=== PATIENT | male | born 1985 | race Caucasian/White ===

== ENCOUNTER 2020-09-11 05:11 | Inpatient (IN) | payer OTHER, SELFPAY ==
[2020-06-18 08:32] VITALS: BMI 43.0
--- NOTE | 2020-09-05 10:45 | EKG12_ITS ---
Test Reason : PRE SURGERY Blood Pressure : / mmHG Vent. Rate : 100 BPM Atrial Rate : 100 BPM P-R Int : 136 ms QRS Dur : 078 ms QT Int : 330 ms P-R-T Axes : 056 028 020 degrees QTc Int : 425 ms Normal sinus rhythm Normal ECG Confirmed by TRINI CALDERON, ADONAY ([id number]), editor continuity and script JOSÉ PALACIO ([id number]) on 09/10/2020 12:26:25 PM Referred By: Miguel Mercer Confirmed By:ADONAY FELIZ MD
[2020-09-05 11:45] LABS: Absolute Lymphocyte Count 2.34 X10^3/uL (0.83-4.51); Basophil# 0.05 X10^3/uL; Basophil% 0.8 % (0-1); Eosinophil# 0.21 X10^3/uL; Eosinophils% 3.2 % (0-5); Hematocrit 42.9 % (40-54); Hemoglobin 14.8 g/dL (13.0-16.5); Lymphocyte # 2.34 X10^3/ul (4.0); Lymphocyte % 35.8 % (19-41); Mean Corp Hgb Conc 34.5 g/dL (32-36); Mean Corpuscular Hgb 30.5 pg (27.0-32.0); Mean Corpuscular Volume 88.3 fL (80-94); Monocyte# 0.86 X10^3/uL; Monocyte% 13.2 % (0-10); NRBC Flagged by Analyzer 0 % (0-5); Neutrophil # 3.03 X10^3/uL (2.7-7.7); Neutrophil % 46.4 % (47-70); Platelet Count 151 K/mm3 (150-450); RBC Distribution Width CV 12.2 % (11.6-14.6); RBC Distribution Width SD 39.2 fl (35.1-43.9); Red Blood Count 4.86 M/mm3 (4.6-6.2); White Blood Count 6.5 K/mm3 (4.4-11.0)
[2020-09-05 12:14] LABS: Anion Gap 6 (5-15); BUN 13 mg/dL (7-18); BUN/Creat Ratio 14.5 RATIO (10-20); Calcium,Total 8.9 mg/dL (8.5-10.1); Chloride 106 mmol/L (98-107); EST Glomerular Filtration Rate 103 mL/min (>60); Est Glom Filt Rate - Afr Amer 124 mL/min (>60); Glucose 102 mg/dL (74-106); Magnesium 2.2 mg/dL (1.6-2.6); Sodium Level 138 mmol/L (136-145)
[2020-09-05 12:40] LABS: HIV - WCH Non-Reactive (Nonreactive)
[2020-09-06 05:07] LABS: HEPATITIS B SURFACE AG Negative (Negative); Hepatitis A AB, Total Negative (Negative); Hepatitis A IgM Antibody Negative (Negative); Hepatitis B Core AB IgM Negative (Negative); Hepatitis B Core Ab Total Negative (Negative)
[2020-09-06 10:47] LABS: Hep B Surface Antibodies Reactive (.)
[2020-09-06 10:48] LABS: Hepatitis C Ab >11.0 s/co ratio (0.0-0.9)
[2020-09-11] VITALS (15 sets, daily range): BP systolic 113–141; BP diastolic 63–92; PULSE 94–110; RESP 16–20; TEMP 36.4–37.4; O2SAT 94–99; BMI 48.4
--- NOTE | 2020-09-11 | DISC_PTH ---
PATIENT: CAMERON PROCTOR III LOC: MS3 U#:[id number] AGE/SX: 34/M ROOM: NC319 RE09/11/[address]: Dr. Elissa Blankenship MD : 1985 BED: 1 DIS: 09/14/2020 SPEC #: [id number] RECD: 09/11/20 14:45 STATUS: LUIS REVane #: [id number] NIKKY: 09/11/20 00:[address]: Miguel Mercer DEPT: SURGICAL PATHOLOGY RECD BY: Aditi Gong ENTERED: 09/12/20 08:45 SP TYPE: DISC OTHR DR: MD Dr. Vlad Tavarez, DO Dr. Miguel Mercer, DO No Primary Care Phys Tissues: Intervertebral disc, NOS Procedures: Surgery Specimen Level III Comments: @ Ordering doctor for SUIII edited from to @ by BETO at 09/12/20 1334 @ Submitting doctor edited from to @ by BETO at 09/12/20 1339 HEADER OPERATION: ERAS, 360 fusion L5-S1 PRE-OP DIAGNOSIS: Herniated nucleus pulposus, lumbar TISSUE SUBMITTED: Disc MICROSCOPIC DIAGNOSIS Disc L5-S1: Fragments of fibrocartilaginous tissue with degenerative changes. CELE:danielle 09/13/2020 MICROSCOPIC DESCRIPTION Slides are reviewed. GROSS DESCRIPTION Received in fixative is one container labeled with the patient's name and designated disc. The specimen consists of multiple irregular fragments of reno, indurated tissue that in aggregate measure 6 x 6 x 2.5 cm. The largest fragment measures 3 cm in greatest dimension. Wheel Press Operator tissue is submitted in two cassettes. / CELE:danielle 09/12/20 TC:5 CPT: 40672
--- NOTE | 2020-09-11 06:00 | HP_ITS ---
Intake Intake Visit Reasons: lumbar spine Accompanied by: Self Allergies No Known Allergies Allergy (Unverified 09/05/20 09:49) Medications losartan 50 mg-hydrochlorothiazide 12.5 mg tablet 1 tab PO DAILY 06/18/20 [History Confirmed 09/05/20] multivitamin with minerals 1 tab PO DAILY 06/18/20 [History Confirmed 09/05/20] PFSH Medical History (Updated 06/18/20 @ 08:39 by Jaky Bundy) H/O Clostridium difficile infection (Acute) HTN (hypertension) (Chronic) Surgical History (Updated 06/18/20 @ 08:39 by Jaky Bundy) History of repair of ACL (Acute) S/P MCL repair (Acute) Family History (Updated 06/18/20 @ 08:40 by Jaky Bundy) Grandfather Cancer Social History (Updated 09/05/20 @ 10:[address] Miguel Mercer, ) household members: friend(s) housing: house current occupational status: employed Smoking Status: Former smoker Tobacco: How many years used: 15 Smokeless tobacco user: chewing tobacco alcohol intake: current alcohol intake frequency: a few times a week Alcohol type: other what type of physical activity do you participate in: weight training do you feel safe at home: Yes HPI lumbar spine: Surgical H&P: Yes Details: Parts of this documentation were recorded by a scribe, this documentation accurately reflects the service provided and the decisions made by me, Dr. Miguel Mercer DO 09/05/20 0944. RASTA PROCTOR is a 34 year old M here today for his preop-op appointment and to sign surgery consent. DOS: 09/11/2020. Patient dropped off [facility] paperwork to be filled out for his employer. Patient was told to eat light meals two days prior to his surgery. Rasta returns for his preop. He is scheduled for surgery 6 days from now on Thursday. He is scheduled for a 360 degree fusion at L5-S1 without decompression. We discussed the surgery at length how it would be done what to expect etc. Spoke of possible risks and complications associated with the surgery including possibility of , paralysis infection meningitis damage to major blood vessels uncontrollable bleeding blood clot in the legs blood clot in the lungs microinfarction stroke among others. He understood the possible risks and complications associated with the surgery. His low back is been about the same activity makes it much worse he has much more low back pain than he does any problem with his legs all he gets in his legs is a off-and-on type numbness occasionally when his back gets worse. Has been living with it a long time and he states that it is no better than it was and he is tired of living like he has been living. He is looking forward to his surgery. We also spot spoke of postop care. He understands that he will get an ileus as they almost all do and that he will only be able to drink clear liquids until it is resolved. He has no problem with that. 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 Which he wants to do if possible. Perhaps 6 weeks at the worst. His company is very accommodating and he will not have to do any lifting whatsoever only office work up in his office. I answered all his questions and he signed the operative permit. He will have his lab done later today at the hospital. I will see him again at surgery on Thursday. Assessment & Plan Problems 1. HNP (herniated nucleus pulposus), lumbar M51.26 Coding Level of Care Code Off vis,est,level 2 Diagnoses HNP (herniated nucleus pulposus), lumbar M51.26 Time Spent (min) 20
[2020-09-11] MEDS: Acetaminophen 500 MG Tablet 1000 MG PO (06:20)
[2020-09-11 06:41] LABS: Bedside Glucose 83 mg/dL (70-110)
[2020-09-11] MEDS: Cefazolin 2 GM in 0.9% Normal Saline 100 ML IV (07:45)
[2020-09-11] MEDS: Thrombin 5,000 IU Kit (PSA) 5,000 IU Vial 5000 IU (08:00)
[2020-09-11] MEDS: Heparin Injection (Vial) 5,000 UNIT/ML VIAL 5000 UNIT (08:00)
[2020-09-11] MEDS: Heparin 10,000 UNITS/10 ML Vial 10000 UNITS (08:00)
--- NOTE | 2020-09-11 09:55 | RAD_ITS ---
STUDY: X-RAY - LUMBAR SPINE REASON FOR EXAM: Male, 34 years old. 360 FUSION L5-S1 TECHNIQUE: 1 view(s) of the lumbar spine were obtained. COMPARISON: None FINDINGS: The localization instrument is seen along the anterior aspect of the L5-S1 disc space. RAD/Spine 1 View Any Level IMPRESSION: The localization instrument is seen along the anterior aspect of the L5-S1 disc space. Electronically Signed: Yvan León MD at 11:04 EST , Service support ,
--- NOTE | 2020-09-11 10:07 | RAD_ITS ---
STUDY: X-RAY - LUMBAR SPINE REASON FOR EXAM: Male, 34 years old. 360 FUSION TECHNIQUE: 1 view(s) of the lumbar spine were obtained. COMPARISON: Comparison is made with prior study done earlier today. FINDINGS: Anterior fusion at the L5-S1 level with the disc spacer placement. RAD/Spine 1 View Any Level IMPRESSION: Anterior fusion at the L5-S1 level with disc spacer placement. Electronically Signed: Yvan León MD at 13:00 EST , Service support ,
--- NOTE | 2020-09-11 11:21 | OP.PCM_ITS ---
Problem List (1) DDD (degenerative disc disease) Status: Acute Report of Operation Date of Procedure: 09/11/20 Pre-Operative Diagnosis: Degenerative disc disease with herniated disc Post-Operative Diagnosis: The same Surgery/Procedure Performed:: 1. Anterior exposure for ALIF L5-S1. With cage placement and plate placement with 2 screws into the L5 and 2 into the sacrum Type of Anesthesia:: General Description of Procedure: Patient brought to the operating room. Underwent appropriate timeout consent. Given appropriate antibiotics. Was prepped and draped in a sterile fashion. He underwent general anesthesia. Appropriate monitoring lines were placed. Did incision in the left lower quadrant. We dissected down and got onto the anterior fascia. We then divided the fascia a little bit past midline to the right and past the rectus into the obliques. Divided a little bit of the obliques. We then freed up the inferior and superior anterior rectus. We then got lateral to the rectus and into the retroperitoneal plane. We put in the Omni retractor. We got on the psoas and then dissected medially to the vessels. With retractor in place were able to get down toward the L5-S1 disc space. We divided the middle sacral vessels between clips and this allowed the pain to retract up. There are a lot of medial branches of the left vein that were d ivided between multiple clips and allowed some lateral retraction of the vein. We then had adequate exposure of the L5-S1 space. We marked it with a needle and confirmed the x-ray that we are in the L5-S1 disc space. Patient then underwent a discectomy. We used trials to then dilate up. And settled with a 16mm cage. Some bone marrow was taken from the left ilium. We then placed the cage in with good position. And freed up superior and inferior to the disc. And the cage was placed in good position. 2 screws placed into the L5 and 2 screws placed into the sacrum. Put a film over the cage to be below the vessels. We put some Gregorio into the pelvis for some of this slight venous bleeding. There was good hemostasis. We released all retractors. We did a completion x-ray showed good position. We then closed the anterior fascia with a running strata fix. Then 201 3-0 Vicryl in layers. Monocryl and Dermabond for the skin. Patient will then be flipped over and the posterior be all done separately
--- NOTE | 2020-09-11 11:29 | PCM.OPRPT ---
Report of Operation Date of Procedure: 09/11/20 Description of Surgical Findings:: Preoperative diagnosis: Disc disruption syndrome L5-S1 with intractable low back pain Postoperative diagnoses: The same Procedure: #1 anterior lumbar interbody fusion L5-S1 #2 insertion of titanium cage L5-S1 #3 internal fixation with anterior spine plate L5-S1 #4 bone marrow aspirate from left iliac crest Cosurgeons: Dr. Mercer and Dr. Banda Anesthesia: General endotracheal anesthesia administered by [facility] Estimated blood loss: 200 cc Drains: None Complications: None Procedure: Patient was taken to the OR where he was placed in the supine position on the operating table he was then placed under general endotracheal anesthesia neuro monitoring then inserted all their leads and the patient and a Delcid catheter was inserted. The abdomen was then prepped and draped in standard fashion. The the approach to the L5-S1 disc space is described in Dr. Banda's operative summary. Dr. Banda had the L5-S1 disc exposed and documented with an x-ray I then remove the anterior annulus with a 10 blade. I removed pituitary rongeurs to remove the large anterior annulus and more disc from within the disc space. We then used both curettes ring type and bowl type to start removing all the ending nucleus and annulus out of the disc space. Using the curettes I also remove the cartilage off both endplates both the endplate of S1 and the endplate of L5. This point was done we took her measurements for a cage. We decided to use a 4 of the 2 size cages but we had to use a 16mm high cage with an 8 degree doses. Used a broach to broach the space and get good bleeding bone off the endplates thorough irrigation was carried out every 10 or 15 minutes in the course of the case. At that before this point I used a Jamshidi needle to the left ASIS. Then obtained 60 cc of BMA from the crest and handed this off to the tissue recovery technician in the room to spin it down and separate stem cells from the plasma red cells white cells etc. Obtained these were concentrated 8-10 times and handed back to us on the surgery table. Then used spongy DBM that had been soaked for softening and soaked the DBM in the patient's own stem cells. I then squeezed him out rolled him and put him into both halves of the cage. This filled the rest of the cage I then soaked it more in the patient's stem cells so that it would can be completely soaked in the patient's cells. We had 1 of last irrigation of the space that was now well-prepped and the cage was put in place and tamped into place with a 2 to 3 mm. Then used a 27 mm anterior spine plate note that I elevated the longitudinal ligament and periosteum off of the lips above and below we used a 30 mm screws at all 4 points with the cage being held in place I Dr. Banda then tamped each of the holes 1 at a time and entered with a 30 mm self-tapping screws. This was done at 2 into L5 and 2 into S1. We then activated the locking mechanisms. An amniotic graft was placed over the plate to prevent any adhesions to the left iliac vessels. This was then seen on the x-ray and the lateral position was found to be very satisfactory with good position of the plate the screws and the cage. The closure is then described in Dr. Banda's operative summary.
--- NOTE | 2020-09-11 12:40 | RAD_ITS ---
STUDY: X-RAY - LUMBAR SPINE REASON FOR EXAM: Male, 34 years old. 360 FUSION, L5-S1 IMAGE #3 TECHNIQUE: 1 view(s) of the lumbar spine were obtained. COMPARISON: None FINDINGS: The localization instrument is seen along the posterior aspect of the L5-S1 disc. RAD/Spine 1 View Any Level IMPRESSION: The localization instrument is seen along the posterior aspect of the L5-S1 disc. Electronically Signed: Yvan León MD at 13:28 EST , Service support ,
--- NOTE | 2020-09-11 13:40 | RAD_ITS ---
STUDY: X-RAY - LUMBAR SPINE REASON FOR EXAM: Male, 34 years old. 360 fusion -- image #4 TECHNIQUE: 1 view(s) of the lumbar spine were obtained. COMPARISON: 09/11/2020 at 1236 FINDINGS: Single lateral view the lumbar spine obtained in the operating room demonstrates the patient be status post interval placement of a posterior fixation device at L5/S1.. RAD/Spine 1 View Any Level IMPRESSION: Radiograph during spinal fusion. Electronically Signed: Jaime Parker MD at 14:02 EST Tel , Service support ,
--- NOTE | 2020-09-11 14:26 | OP.PCM_ITS ---
Report of Operation Date of Procedure: 09/11/20 Description of Surgical Findings:: Preoperative diagnosis: Disc disruption syndrome L5-S1 Postoperative diagnosis: The same Procedure: Steroid fusion L5-S1 #2 internal segmental fixation L5-S1 #3 application of spacer L5-S1 Surgeon: Dr. Mercer assistant men's lacrosse coach:Jeferson WALLACE Anesthesia: General endotracheal anesthesia administered by [facility] Estimated blood loss: Less than 50 cc Drains: None Complications: None Procedure: After the anterior surgery was performed and the abdomen closed we then placed the patient onto the prone position on the Kyle special frame. Once properly positioned with care to protect his bony prominences his genitalia is brachial plexus is ulnar nerves of both elbows and the facial features the back was prepped and draped in standard fashion. I then made a longitudinal incision centered over L5-S1. Subcutaneous tissues were incised length of the skin incision. I then opened the lumbar fascia first to the left of the spinous processes and elevated paravertebral muscles off the lamina of S1 and the lamina of L5. An intraoperative x-ray was taken to ensure that we were indeed at the proper level which we were. We then opened the right side elevating peritoneal muscles off the lamina of 5 the lamina of S1 and in between. I then removed the interspinous ligament between L5 and S1. The bony spacer and bone graft were measured for using trials I then used the bur to bur the lamina of of L5 and the lamina of S1 bilaterally. Noted we used the super slide self-retaining retractor. Once this was done we then put the plate the spacer in place to slightly distract the 2 vertebra. Demineralized bone sponges were then placed from L4-S1 lamina on both sides note that it was soaked in the patient's own stem cells that we obtained from the front. The internal fixation device was then applied and put in a little bit of compression and all the locking mechanisms were then activated. Observed on lateral x-ray was found to be satisfactory. Closure was then begun we closed the lumbar fascia using fig [id number] suture with #1 Vicryl for closure of subcutaneous tissues with 2-0 Vicryl and 0 Vicryl in interrupted fashion and in layers. And the skin was approximated using skin clips. Sterile dressings were then applied. He was then recovered in the OR he was moved to his hospital bed and taken to recovery in satisfactory condition. The end of operative summary on Rasta Arias.
[2020-09-11] MEDS: Cefazolin 1 GM/50 ML BAG IV ×2 (17:28→23:50)
[2020-09-11] MEDS: Morphine 4 MG/ML Syringe IV ×4 (17:29→23:51)
--- NOTE | 2020-09-11 17:35 | PCM.PN.HOSP ---
Patient Problems: Active and Suspected Problems (Last Updated 06/18/20 @ 08:39 by Jaky Bundy) DDD (degenerative disc disease) (Acute) Subjective: Having significant pain in abd and back currently. Vitals/I&O's: Vital Signs Temp Pulse Resp BP Pulse Ox 37.4 C H 97 20 H 132/77 H 94 09/11/20 17:08 09/11/20 17:08 09/11/20 17:08 09/11/20 17:08 09/11/20 17:08 Oxygen Flow Rate (L/min) 2 Oxygen Delivery Method Nasal Cannula Weight: 153 kg Body Mass Index (BMI) 48.4 Intake and Output for Last 24 Hours 09/09/20 09/10/20 09/11/20 23:59 23:59 23:59 Output Total 1150 / 1150 Balance -1150 / -1150 General: Alert, - - uncomfortable. afebrile. HEENT: Atraumatic, Normocephalic Oral: Moist Mucosa, No Gingival or Mucosal Lesions/ Ulcerations Neck: No Nodes, Thyroid Normal Size and Texture Lungs: Clear to auscultation, Normal air movement, No rhonchi, No wheeze, No rales Cardiovascular: Regular rate, Regular Rhythm, Normal S1, Normal S2, No murmurs Abdomen: Bowel Sounds Present, Soft, Non Tender, Distended - slight Extremities: Peripheral Pulses Normal, - - SCDs in place Neurological: - - moves all extemities spontaneously Psych/Mental Status: Appropriate Microbiology Past 72 Hours 09/10/20 09:55 Interface Orders SARS-CoV-2 Antigen (Rapid) - Final Laboratory Results 09/11/20 05:54: POC Glucose 83 Current Medications Diazepam (Diazepam 5 Mg Tablet) 10 mg PO Q6H PRN PRN PRN Reason: Muscle Spasms Enteral Nutritional Formula (Ensure Surgery 237 Ml Liquid) 237 ml PO TIDCM JUAN Famotidine (Famotidine 20 Mg Tablet) 20 mg PO BID JUAN Lactated Ringer's () 1,000 mls @ 100 mls/hr IV .Q10H JUAN Cefazolin Sodium () 1 gm in 50 mls @ 100 mls/hr IV Q8H JUAN Stop: 09/12/20 00:14 Last Admin: 09/11/20 17:28 Dose: 100 mls/hr Documented by: Insulin Human Lispro (Insulin Lispro 100 Unit/Ml Insuln.Pen) 1 - 6 unit SC Q4H PRN PRN; Protocol PRN Reason: BG>/= 180, SEE PROTOCOL Morphine Sulfate (Morphine 4 Mg/Ml Syringe) 2 - 4 mg IV Q2H PRN PRN PRN Reason: Pain Score 6-10 Last Admin: 09/11/20 17:29 Dose: 4 mg Documented by: Morphine Sulfate (Morphine 2 Mg/Ml Syringe) 2 - 4 mg IV Q2H PRN PRN PRN Reason: Pain Score 6-10 Ondansetron HCl (Ondansetron 4 Mg/2 Ml Vial) 4 mg IV Q8H PRN PRN PRN Reason: NAUSEA Senna/Docusate Sodium (Senna/Docusate Sodium 1 Tablet) 2 tablet PO BID JUAN Sodium Chloride (0.9% Saline Lock 10 Ml Syringe) 10 - 40 ml IV UD PRN PRN Reason: SALINE FLUSH Tramadol HCl (Tramadol 50 Mg Tablet) 50 - 100 mg PO Q6H PRN PRN PRN Reason: Pain Score 4-5 Zolpidem Tartrate (Zolpidem Tartrate 5 Mg Tablet) 5 mg PO QHS PRN PRN PRN Reason: INSOMNIA STROKE Vital Signs/Narrative: Vital Signs Temp Pulse Resp BP Pulse Ox 09/11/20 17:08 37.4 C H 97 20 H 132/77 H 94 09/11/20 17:06 96 09/11/20 16:17 36.5 C L 99 16 115/65 97 09/11/20 16:16 97 16 113/76 97 09/11/20 16:00 95 16 123/73 H 97 09/11/20 15:45 97 16 141/88 H 97 09/11/20 15:30 100 16 122/76 H 97 09/11/20 15:15 102 H 16 129/73 H 99 09/11/20 15:00 104 H 16 119/75 97 09/11/20 14:45 109 H 16 140/83 H 97 09/11/20 14:30 110 H 16 129/76 H 96 09/11/20 14:27 36.4 C L 105 H 16 129/73 H 95 Medical Necessity - Tobacco Use Smoking Status: Former smoker Tobacco Use: Chew Assessment/Plan All Active Problems (Last Updated 06/18/20 @ 08:39 by Jaky Bundy) DDD (degenerative disc disease) (Acute) 1. Fusion L5-S1 s/p anterior fusion and insertion of titanium cage and spacer placement mgmt per spine surgery pain control with morphine, consider oxycodone when able to take PO 2. Obesity Class III complicates care and overall recovery add IS outpt weight loss/bariatric programs recommended 3. VTE prophylaxis: SCDs Thank you for the consult. The hospitalist service will continue to follow along during hospitalization. Inpatient E&M: 73511 Subs Hosp L2
[2020-09-11] MEDS: traMADol 50 MG Tablet PO (18:58)
[2020-09-11] MEDS: diazePAM 5 MG Tablet 10 MG PO (18:58)
[2020-09-11] MEDS: Senna/Docusate Sodium 1 Tablet 2 TABLET PO (21:17)
[2020-09-11] MEDS: Famotidine 20 MG Tablet PO (21:17)
[2020-09-11] MEDS: Zolpidem Tartrate 5 MG Tablet PO (23:53)
[2020-09-12] VITALS (8 sets, daily range): BP systolic 112–145; BP diastolic 70–95; PULSE 87–108; RESP 16–20; TEMP 36.4–36.8; O2SAT 92–100
[2020-09-12] MEDS: traMADol 50 MG Tablet PO ×3 (03:17→23:56)
[2020-09-12] MEDS: diazePAM 5 MG Tablet 10 MG PO ×4 (03:17→23:57)
[2020-09-12] MEDS: Morphine 4 MG/ML Syringe IV (06:04)
--- NOTE | 2020-09-12 07:39 | PCM.PN.HOSP ---
Patient Problems: Active and Suspected Problems (Last Updated 06/18/20 @ 08:39 by Jaky Bundy) DDD (degenerative disc disease) (Acute) Reason for Visit: Follow-up on post-op management for back surgery Subjective: Patient was seen and examined. Complains of severe pain. Denies any tingling or numbness or fever or chills Objective: General: Alert, - - uncomfortable. afebrile. HEENT: Atraumatic, Normocephalic Oral: Moist Mucosa, No Gingival or Mucosal Lesions/ Ulcerations Neck: No Nodes, Thyroid Normal Size and Texture Lungs: Clear to auscultation, Normal air movement, No rhonchi, No wheeze, No rales Cardiovascular: Regular rate, Regular Rhythm, Normal S1, Normal S2, No murmurs Abdomen: Bowel Sounds sluggish, Soft, non-tender, Distended - slight Extremities: Peripheral Pulses Normal, - - SCDs in place Neurological: - - moves all extemities spontaneously Psych/Mental Status: Appropriate Vitals/I&O's: Vital Signs Temp Pulse Resp BP Pulse Ox 97.8 F 98 18 112/70 96 09/12/20 03:11 09/12/20 03:11 09/12/20 03:11 09/12/20 03:11 09/12/20 03:11 Oxygen Flow Rate (L/min) 2 Oxygen Delivery Method Nasal Cannula Weight: 153 kg Body Mass Index (BMI) 48.4 Intake and Output for Last 24 Hours 09/10/20 09/11/20 09/12/20 23:59 23:59 23:59 Intake Total 1800 / 1800 860 / 860 Output Total 4650 / 4650 2500 / 2500 Balance -2850 / -2850 -1640 / -1640 Microbiology Past 72 Hours 09/10/20 09:55 Interface Orders SARS-CoV-2 Antigen (Rapid) - Final Current Medications Diazepam (Diazepam 5 Mg Tablet) 10 mg PO Q6H PRN PRN PRN Reason: Muscle Spasms Last Admin: 09/12/20 03:17 Dose: 10 mg Documented by: Enteral Nutritional Formula (Ensure Surgery 237 Ml Liquid) 237 ml PO TIDCM [facility] Last Admin: 09/11/20 18:45 Dose: Not Given Documented by: Famotidine (Famotidine 20 Mg Tablet) 20 mg PO BID [facility] Last Admin: 09/11/20 21:17 Dose: 20 mg Documented by: Insulin Human Lispro (Insulin Lispro 100 Unit/Ml Insuln.Pen) 1 - 6 unit SC Q4H PRN PRN; Protocol PRN Reason: BG>/= 180, SEE PROTOCOL Morphine Sulfate (Morphine 4 Mg/Ml Syringe) 2 - 4 mg IV Q2H PRN PRN PRN Reason: Pain Score 6-10 Last Admin: 09/12/20 06:04 Dose: 4 mg Documented by: Morphine Sulfate (Morphine 2 Mg/Ml Syringe) 2 - 4 mg IV Q2H PRN PRN PRN Reason: Pain Score 6-10 Ondansetron HCl (Ondansetron 4 Mg/2 Ml Vial) 4 mg IV Q8H PRN PRN PRN Reason: NAUSEA Senna/Docusate Sodium (Senna/Docusate Sodium 1 Tablet) 2 tablet PO BID JUAN Last Admin: 09/11/20 21:17 Dose: 2 tablet Documented by: Sodium Chloride (0.9% Saline Lock 10 Ml Syringe) 10 - 40 ml IV UD PRN PRN Reason: SALINE FLUSH Tramadol HCl (Tramadol 50 Mg Tablet) 50 - 100 mg PO Q6H PRN PRN PRN Reason: Pain Score 4-5 Last Admin: 09/12/20 03:17 Dose: 100 mg Documented by: Zolpidem Tartrate (Zolpidem Tartrate 5 Mg Tablet) 5 mg PO QHS PRN PRN PRN Reason: INSOMNIA Last Admin: 09/11/20 23:53 Dose: 5 mg Documented by: Medical Necessity - Tobacco Use Smoking Status: Former smoker Tobacco Use: Chew Assessment/Plan All Active Problems (Last Updated 06/18/20 @ 08:39 by Jaky Bundy) DDD (degenerative disc disease) (Acute) 1. POD#1 s/p fusion L5-S1, cage placement and plate placement, pain is fairly uncontrolled Continue on tramadol prn, Tylenol 1000mg TID PT/OT to evaluate and treat 2. Morbid obesity, BMI 48.4, lifestyle modifications recommendations 3. DVT PPx- SCDs Inpatient E&M: 90182 Subs Hosp L2
[2020-09-12] MEDS: Morphine 2 MG/ML Syringe IV ×5 (08:14→20:57)
[2020-09-12] MEDS: 0.9% Saline Lock 10 ML Syringe IV ×3 (08:14→20:57)
[2020-09-12] MEDS: Ensure Surgery 237 ML LIQUID PO ×3 (08:18→18:07)
[2020-09-12] MEDS: Senna/Docusate Sodium 1 Tablet 2 TABLET PO ×2 (08:18→21:01)
[2020-09-12] MEDS: Famotidine 20 MG Tablet PO ×2 (08:18→21:01)
--- NOTE | 2020-09-12 10:35 | CASEMGMT ---
RN CM Face to Face with patient for initial transition planning/care coordination assessment. RN CM introduced self and role at [facility]. Patient sitting in chair, alert and oriented. Patient willing to participate in assessment and is able to answer all questions appropriately. Care providers, pharmacy, and demographics verified. Patient wishes to discharge home, denies need for home health at this time. Patient states he has no further needs or concerns at this time. CM to follow for discharge planning needs that may arise. PCP: No PCP, patient declined list and knows who he will setup with Specialists: Ruslan spinal surgeon Preferred Pharmacy: [facility] Insurance: [email or web address] Prescription Benefit: yes Living Will/HPOA: none LNOK: parents Living Arrangements: Patient lives with a roommate in a first floor apartment with no steps to enter. Patient states that he is independent at home. Transportation: father DME/HHC: Patient denies DME or previous HHC. Will monitor for need for walker at discharge. Disposition Plan: Patient to discharge home with family support and follow-up plans in place. Ronel PALOMO, RN, CM
--- NOTE | 2020-09-12 13:58 | PCM.PN.BLA ---
Progress Note Postop day #1: His main complaint is that of some pain in his abdomen and pain in his low back. Other than that he has actually been up on his walker today. The low back pain that he has now is a different kind of pain that he had prior to surgery. He is intact in both lower extremities. His dressings are dry. Has had some flatulence already. However we will still assume that he has an ileus and will keep him on clear liquids only. STROKE Vital Signs/Narrative: Vital Signs Temp Pulse Resp BP Pulse Ox 09/12/20 10:23 98.0 F 108 H 18 145/95 H 92
[2020-09-12] MEDS: Acetaminophen 500 MG Tablet 1000 MG PO ×2 (14:59→21:01)
[2020-09-13 04:40] VITALS: BP 135/77; PULSE 97; RESP 20; TEMP 37.3; O2SAT 99
[2020-09-13] MEDS: Morphine 2 MG/ML Syringe IV (04:42)
[2020-09-13] MEDS: 0.9% Saline Lock 10 ML Syringe IV ×3 (04:46→18:05)
[2020-09-13] MEDS: Acetaminophen 500 MG Tablet 1000 MG PO ×3 (06:04→22:24)
[2020-09-13] MEDS: traMADol 50 MG Tablet PO ×3 (07:45→20:03)
[2020-09-13] MEDS: Ensure Surgery 237 ML LIQUID PO ×3 (08:21→18:18)
[2020-09-13] MEDS: diazePAM 5 MG Tablet 10 MG PO ×2 (08:34→18:04)
[2020-09-13 09:11] VITALS: O2SAT 99
[2020-09-13] MEDS: Morphine 4 MG/ML Syringe IV ×3 (09:42→22:21)
[2020-09-13 09:50] VITALS: BP 147/74; PULSE 88; RESP 18; TEMP 36.9; O2SAT 99
[2020-09-13] MEDS: Senna/Docusate Sodium 1 Tablet 2 TABLET PO ×2 (10:06→22:23)
[2020-09-13] MEDS: Famotidine 20 MG Tablet PO ×2 (10:07→22:24)
--- NOTE | 2020-09-13 11:51 | PN_ITS ---
Progress Note Postop day #2: The patient is doing better today than yesterday. He can get up a lot easier but he does still need to use his walker. Neurologically he is intact. The posterior dressing was dry and I reinforced it nonetheless. To take it off on Thursday and to shower on Thursday. Todd is still soft and he is having some flatulence. We explained to him that he still not ready for food. We will continue on clear liquids for now. In my absence Jeferson Cramer my physician assistant professor of business will see the patient tomorrow and probably discharge him. Gross is quite satisfactory. STROKE Vital Signs/Narrative: Vital Signs Temp Pulse Resp BP Pulse Ox 09/13/20 09:50 98.5 F 88 18 147/74 H 99 09/13/20 09:11 99
--- NOTE | 2020-09-13 12:19 | CASEMGMT ---
Addendum entered by Tristan Rome 09/13/20 13:28: Script for heavy duty FWW faxed to [employer]. Call placed to Erum @ [employer]. She was made aware anticipate pt will discharge Fri or Sat. She states they will deliver walker to pt's room tomorrow. Original Note: FREDDY MCNALLY NOTE; Anticipate pt will be ready to discharge Fri or Sat. This RN CM to room to discuss discharge planning. Pt states he will need a walker at discharge. Pt provided with list of local DME companies. He states he has no preference. Pt made aware [facility] is affiliated /[facility] and states is agreeable to [employer]. Script obtained from Dr Mercer for FWW. Will fax to [employer] and have walker delivered to pt's room prior to discharge. Per Dr Mercer, he does not want pt to have any therapy @ discharge. Pt made aware. Pt to f/u with Dr Mercer @ his office after discharge. Robyn PALOMO RN CM
[2020-09-13 16:00] VITALS: BP 115/60; PULSE 100; RESP 18; TEMP 36.5; O2SAT 99
--- NOTE | 2020-09-13 16:37 | PN_ITS ---
Patient Problems: Active and Suspected Problems (Last Updated 06/18/20 @ 08:39 by Jaky Bundy) DDD (degenerative disc disease) (Acute) Reason for Visit: Follow-up on post-op management for back surgery Subjective: Patient was seen and examined. Pain is better. Denies any tingling or numbness or fever or chills Objective: Physical exam: General: Alert, more comfortable, super morbid obesity, not pale, not jaundiced, well hydrated HEENT: Atraumatic, Normocephalic Oral: Moist Mucosa Neck: No Nodes, Thyroid Normal Size and Texture Lungs: Clear to auscultation, Normal air movement, No rhonchi, No wheeze, No rales Cardiovascular: Regular rate, Regular Rhythm, Normal S1, Normal S2, No murmurs Abdomen: Bowel Sounds sluggish, soft, non-tender, distended - slight Extremities: Peripheral Pulses Normal, - - SCDs in place Neurological: - - moves all extremities spontaneously Psych/Mental Status: Appropriate Vitals/I&O's: Vital Signs Temp Pulse Resp BP Pulse Ox 97.7 F L 100 18 115/60 99 09/13/20 16:00 09/13/20 16:00 09/13/20 16:00 09/13/20 16:00 09/13/20 16:00 Oxygen Flow Rate (L/min) 2 Oxygen Delivery Method Room Air Weight: 153 kg Body Mass Index (BMI) 48.4 Intake and Output for Last 24 Hours 09/11/20 09/12/20 09/13/20 23:59 23:59 23:59 Intake Total 1800 / 1800 2525 / 3425 1700 / 1700 Output Total 4650 / 4650 3300 / 3300 650 / 650 Balance -2850 / -2850 -775 / 125 1050 / 1050 Current Medications Acetaminophen (Acetaminophen 500 Mg Tablet) 1,000 mg PO Q8 [facility] Last Admin: 09/13/20 13:59 Dose: 1,000 mg Documented by: Diazepam (Diazepam 5 Mg Tablet) 10 mg PO Q6H PRN PRN PRN Reason: Muscle Spasms Last Admin: 09/13/20 08:34 Dose: 10 mg Documented by: Enteral Nutritional Formula (Ensure Surgery 237 Ml Liquid) 237 ml PO TIDCM [facility] Last Admin: 09/13/20 13:58 Dose: 237 ml Documented by: Famotidine (Famotidine 20 Mg Tablet) 20 mg PO BID [facility] Last Admin: 09/13/20 10:07 Dose: 20 mg Documented by: Insulin Human Lispro (Insulin Lispro 100 Unit/Ml Insuln.Pen) 1 - 6 unit SC Q4H PRN PRN; Protocol PRN Reason: BG>/= 180, SEE PROTOCOL Morphine Sulfate (Morphine 4 Mg/Ml Syringe) 2 - 4 mg IV Q2H PRN PRN PRN Reason: Pain Score 6-10 Last Admin: 09/13/20 09:42 Dose: 4 mg Documented by: Morphine Sulfate (Morphine 2 Mg/Ml Syringe) 2 - 4 mg IV Q2H PRN PRN PRN Reason: Pain Score 6-10 Last Admin: 09/13/20 04:42 Dose: 2 mg Documented by: Ondansetron HCl (Ondansetron 4 Mg/2 Ml Vial) 4 mg IV Q8H PRN PRN PRN Reason: NAUSEA Senna/Docusate Sodium (Senna/Docusate Sodium 1 Tablet) 2 tablet PO BID [facility] Last Admin: 09/13/20 10:06 Dose: 2 tablet Documented by: Sodium Chloride (0.9% Saline Lock 10 Ml Syringe) 10 - 40 ml IV UD PRN PRN Reason: SALINE FLUSH Last Admin: 09/13/20 09:42 Dose: 10 ml Documented by: Tramadol HCl (Tramadol 50 Mg Tablet) 50 - 100 mg PO Q6H PRN PRN PRN Reason: Pain Score 4-5 Last Admin: 09/13/20 13:58 Dose: 100 mg Documented by: Zolpidem Tartrate (Zolpidem Tartrate 5 Mg Tablet) 5 mg PO QHS PRN PRN PRN Reason: INSOMNIA Last Admin: 09/11/20 23:53 Dose: 5 mg Documented by: STROKE Vital Signs/Narrative: Vital Signs Temp Pulse Resp BP Pulse Ox 09/13/20 16:00 97.7 F L 100 18 115/60 99 Medical Necessity - Tobacco Use Smoking Status: Former smoker Tobacco Use: Chew Assessment/Plan All Active Problems (Last Updated 06/18/20 @ 08:39 by Jaky Bundy) DDD (degenerative disc disease) (Acute) 1. POD#2 s/p fusion L5-S1, cage placement and plate placement, pain is better uncontrolled today Continue on tramadol prn, Tylenol 1000mg TID PT/OT to continue to evaluate and treat 2. Morbid obesity, BMI 48.4, lifestyle modifications recommendations 3. DVT PPx- SCDs Inpatient E&M: 60357 Subs Hosp L2
[2020-09-13 22:00] VITALS: BP 150/78; PULSE 107; RESP 18; TEMP 37.2; O2SAT 97
[2020-09-14] MEDS: Morphine 4 MG/ML Syringe IV ×2 (01:10→07:21)
[2020-09-14] MEDS: diazePAM 5 MG Tablet 10 MG PO ×2 (01:13→09:35)
[2020-09-14 03:21] VITALS: BP 119/66; PULSE 106; RESP 18; TEMP 37.2; O2SAT 94
[2020-09-14] MEDS: Acetaminophen 500 MG Tablet 1000 MG PO (05:39)
[2020-09-14] MEDS: traMADol 50 MG Tablet PO ×2 (05:39→11:43)
[2020-09-14 07:29] VITALS: O2SAT 94
[2020-09-14 07:37] VITALS: BP 147/57; PULSE 102; RESP 19; TEMP 37.3; O2SAT 97
[2020-09-14 08:04] VITALS: PULSE 102; O2SAT 97
[2020-09-14] MEDS: Famotidine 20 MG Tablet PO (08:47)
[2020-09-14] MEDS: Senna/Docusate Sodium 1 Tablet 2 TABLET PO (08:47)
[2020-09-14] MEDS: Ensure Surgery 237 ML LIQUID PO ×2 (08:48→13:25)
[2020-09-14] MEDS: Morphine 2 MG/ML Syringe IV (09:37)
--- NOTE | 2020-09-14 09:44 | PCM.PN.HOSP ---
Patient Problems: Active and Suspected Problems (Last Updated 06/18/20 @ 08:39 by Jaky Bundy) DDD (degenerative disc disease) (Acute) Reason for Visit: Follow-up on post-op management for 360 degree back surgery Subjective: Patient was seen and examined. No new complains. Denies any fever or chills. Objective: Physical exam: General: Alert, more comfortable, super morbid obesity, not pale, not jaundiced, well hydrated HEENT: Atraumatic, Normocephalic Oral: Moist Mucosa Neck: No Nodes, Thyroid Normal Size and Texture Lungs: Clear to auscultation, Normal air movement, No rhonchi, No wheeze, No rales Cardiovascular: Regular rate, Regular Rhythm, Normal S1, Normal S2, No murmurs Abdomen: Bowel Sounds sluggish, soft, non-tender, distended - slight Extremities: Peripheral Pulses Normal, - - SCDs in place Neurological: - - moves all extremities spontaneously Psych/Mental Status: Appropriate Vitals/I&O's: Vital Signs Temp Pulse Resp BP Pulse Ox 99.1 F 102 H 19 H 147/57 H 97 09/14/20 07:37 09/14/20 08:04 09/14/20 07:37 09/14/20 07:37 09/14/20 08:04 Oxygen Flow Rate (L/min) 2 Oxygen Delivery Method Room Air Weight: 153 kg Body Mass Index (BMI) 48.4 Intake and Output for Last 24 Hours 09/12/20 09/13/20 09/14/20 23:59 23:59 23:59 Intake Total 2525 / 3425 1700 / 2000 900 / 900 Output Total 3300 / 3300 650 / 650 Balance -775 / 125 1050 / 1350 900 / 900 Current Medications Acetaminophen (Acetaminophen 500 Mg Tablet) 1,000 mg PO Q8 [facility] Last Admin: 09/14/20 05:39 Dose: 1,000 mg Documented by: Diazepam (Diazepam 5 Mg Tablet) 10 mg PO Q6H PRN PRN PRN Reason: Muscle Spasms Last Admin: 09/14/20 09:35 Dose: 10 mg Documented by: Enteral Nutritional Formula (Ensure Surgery 237 Ml Liquid) 237 ml PO TIDCM [facility] Last Admin: 09/14/20 08:48 Dose: 237 ml Documented by: Famotidine (Famotidine 20 Mg Tablet) 20 mg PO BID [facility] Last Admin: 09/14/20 08:47 Dose: 20 mg Documented by: Insulin Human Lispro (Insulin Lispro 100 Unit/Ml Insuln.Pen) 1 - 6 unit SC Q4H PRN PRN; Protocol PRN Reason: BG>/= 180, SEE PROTOCOL Morphine Sulfate (Morphine 4 Mg/Ml Syringe) 2 - 4 mg IV Q2H PRN PRN PRN Reason: Pain Score 6-10 Last Admin: 09/14/20 07:21 Dose: 4 mg Documented by: Morphine Sulfate (Morphine 2 Mg/Ml Syringe) 2 - 4 mg IV Q2H PRN PRN PRN Reason: Pain Score 6-10 Last Admin: 09/14/20 09:37 Dose: 4 mg Documented by: Ondansetron HCl (Ondansetron 4 Mg/2 Ml Vial) 4 mg IV Q8H PRN PRN PRN Reason: NAUSEA Senna/Docusate Sodium (Senna/Docusate Sodium 1 Tablet) 2 tablet PO BID [facility] Last Admin: 09/14/20 08:47 Dose: 2 tablet Documented by: Sodium Chloride (0.9% Saline Lock 10 Ml Syringe) 10 - 40 ml IV UD PRN PRN Reason: SALINE FLUSH Last Admin: 09/13/20 18:05 Dose: 10 ml Documented by: Tramadol HCl (Tramadol 50 Mg Tablet) 50 - 100 mg PO Q6H PRN PRN PRN Reason: Pain Score 4-5 Last Admin: 09/14/20 05:39 Dose: 100 mg Documented by: Zolpidem Tartrate (Zolpidem Tartrate 5 Mg Tablet) 5 mg PO QHS PRN PRN PRN Reason: INSOMNIA Last Admin: 09/11/20 23:53 Dose: 5 mg Documented by: STROKE Vital Signs/Narrative: Vital Signs Temp Pulse Resp BP Pulse Ox 09/14/20 08:04 102 H 97 09/14/20 07:37 99.1 F 102 H 19 H 147/57 H 97 09/14/20 07:29 94 Medical Necessity - Tobacco Use Smoking Status: Former smoker Tobacco Use: Chew Assessment/Plan All Active Problems (Last Updated 06/18/20 @ 08:39 by Jaky Bundy) DDD (degenerative disc disease) (Acute) 1. POD#3 s/p fusion L5-S1, cage placement and plate placement, pain is controlled today Continue on tramadol prn, Tylenol 1000mg TID PT/OT to continue to evaluate and treat 2. Morbid obesity, BMI 48.4, lifestyle modifications recommendations 3. Chronic Hep C, needs to follow-up in the outpatient 4.,DVT PPx- SCDs Inpatient E&M: 80834 Subs Hosp L2
--- NOTE | 2020-09-14 12:23 | CASEMGMT ---
RN CM in to room to verify that walker was delivered from [facility]. Patient states walker was delivered and is at bedside. Patient had no further needs or concerns at this time.
[2020-09-14] MEDS: HYDROcodone Bitartrate/Apap 5/325 Tablet PO (13:20)
[2020-09-14 13:26] VITALS: BP 124/69; PULSE 95; RESP 18; TEMP 36.9; O2SAT 96
--- NOTE | 2020-09-14 15:21 | PCM.DC.SUM ---
Discharge Date and Diagnosis - Problem List Patient Problems: Active and Suspected Problems (Last Updated 06/18/20 @ 08:39 by Jaky Bundy) DDD (degenerative disc disease) (Acute) Date of Admission: 09/11/20 Date of Discharge: 09/14/20 - - Primary Discharge Diagnosis Acute Problems: Active Problems (Last Updated 06/18/20 @ 08:39 by Jaky Bundy) DDD (degenerative disc disease) (Acute) Hospital Course and Treatment No consults required Operations: - - Anterior lumbar interbody fusion of L5-S1 with insertion of titanium cage and internal fixation with anterior spin plate of L5-S1 Procedures: None Summary of Care Provided: The patient is a 34 year old M who was admitted to the hospital on September 11 postoperatively from anterior lumbar interbody fusion of L5-S1 with insertion of titanium cage at L5-S1 and internal fixation with anterior spine plate 12 L5-S1. Patient also had bone aspirate from iliac crest intraoperatively. Since his surgery patient has had an uneventful hospital stay without any known complications or concerns. His pains in the abdomen as well as in the back have been progressing/improving each day since Thursday. This time he states he really is not having any pains in either location except for when he goes to stand from a sitting position and then going back to a seated position from standing he gets a mild short lived pain. He has been walking since day 1 postop and has progressed from using a walker for assistance to no walker at all the past 2 days. Patient states that he has seen improvement in the paresthesia of the left lower extremity. He states he still has some evidence of paresthesia in the leg at the same time again is improved from preop. Patient denies any weakness in the extremity stating that he feels he can walk around the halls feeling stable on his feet without assistance. He denies any pains on the leg, tightness or swelling in the extremity, calf tenderness, or any other symptoms of the leg. Patient states that he has been passing a lot of gas thus far at same time has not had a bowel movement. He has been tolerating liquids very well without any problems. At this time patient feels that the oral pain meds have been controlling his pain and he feels comfortable and stable going home at this time. Patient Problems: Active and Suspected Problems (Last Updated 12/07/20 @ 08:39 by Jaky Bundy) DDD (degenerative disc disease) (Acute) Subjective: Patient states that he is doing very well today. He has not had any current pains in the abdomen or the back other than when he goes to stand from a seated position or sit from a standing position. Pains he gets during this are very mild and short-lived. Patient is seeing improvement in the paresthesia of the lower leg compared to preoperatively. He is not having any pain in the leg at this time. He has been walking around the halls without any assistive device and states he feels very comfortable and stable on his feet. He has been passing flatus at the same time as not had a bowel movement stating he just has not felt like he needs to go. They did switch him to oral pills which he states have been controlling his pain thus far. He feels the Chandler did better than the tramadol while here in the hospital. Patient again denies any swelling in the lower leg, areas of firmness or hardness in the leg, calf tenderness, or any other problems. Patient is very pleased at this point how he feels. Objective: Patient examined at his bedside while seated in the chair. Patient is alert and oriented x 3 and is very cooperative and conversive today. He has no signs of fatigue or mental changes from medications. I did have him stand up to evaluate the wound/dressing. Dressings in both the abdomen as well as the back were evaluated. Both dressings are still in place with the dressing of the back starting to to peel up a little bit from him getting up and down. Abdominal dressing shows no changes. There is no surrounding erythema, warmth, discharge, or any other changes around the dressings both of the abdomen and the back. He has no tenderness on palpation of the low back incision. States has a little discomfort with palpation of the abdomen but is much improved from directly postop. Patient has some minor decreased sensation to light touch on the lateral aspect of the upper leg at the same time has normal sensation to light touch anteriorly and posteriorly compared to the right side. He has no decreased sensation below the knee at all. He has intact motor function of the entire lower extremity (hip/knee/ankle/foot). He has great strength against resistance in the knee/ankle/foot. He has soft compartments throughout the extremity, no calf tenderness, and a negative Homans. - Physical Exam Vitals/I&O's: Vital Signs Temp Pulse Resp BP Pulse Ox 98.4 F 95 18 124/69 H 96 09/14/20 13:26 09/14/20 13:26 09/14/20 13:26 09/14/20 13:26 09/14/20 13:26 Oxygen Flow Rate (L/min) 2 Oxygen Delivery Method Room Air Weight: 337 lb 4.916 oz Body Mass Index (BMI) 48.4 Intake and Output for Last 24 Hours 09/12/20 09/13/20 09/14/20 23:59 23:59 23:59 Intake Total 2525 / 3425 1700 / 2000 1500 / 1500 Output Total 3300 / 3300 650 / 650 Balance -775 / 125 1050 / 1350 1500 / 1500 General: Alert, Oriented x3, Cooperative Oral: Moist Mucosa Lungs: Normal air movement - No evidence of tachypnea Abdomen: Non Tender - Very minimal around the incision but no generalized tenderness, Non-Distended Extremities: No clubbing Skin: No rashes, Incision - Postop occlusive dressings still in place at the same time no surrounding erythema, warmth, or any evidence of saturation/discharge of the dressings. Musculoskeletal: No Tenderness to Palpation of Joints or Extremities Psych/Mental Status: Normal Affect, Appropriate Current Medications Acetaminophen (Acetaminophen 500 Mg Tablet) 1,000 mg PO Q8 [facility] Last Admin: 09/14/20 13:32 Dose: Not Given Documented by: Hydrocodone Bitart/Acetaminophen (Hydrocodone Bitartrate/Apap 5/325 Tablet) 1 - 2 tablet PO Q4H PRN PRN PRN Reason: Pain Score 4-10 Last Admin: 09/14/20 13:20 Dose: 2 tablet Documented by: Diazepam (Diazepam 5 Mg Tablet) 10 mg PO Q6H PRN PRN PRN Reason: Muscle Spasms Last Admin: 09/14/20 09:35 Dose: 10 mg Documented by: Enteral Nutritional Formula (Ensure Surgery 237 Ml Liquid) 237 ml PO TIDCM [facility] Last Admin: 09/14/20 13:25 Dose: 237 ml Documented by: Famotidine (Famotidine 20 Mg Tablet) 20 mg PO BID [facility] Last Admin: 09/14/20 08:47 Dose: 20 mg Documented by: Insulin Human Lispro (Insulin Lispro 100 Unit/Ml Insuln.Pen) 1 - 6 unit SC Q4H PRN PRN; Protocol PRN Reason: BG>/= 180, SEE PROTOCOL Morphine Sulfate (Morphine 4 Mg/Ml Syringe) 2 - 4 mg IV Q2H PRN PRN PRN Reason: Pain Score 6-10 Last Admin: 09/14/20 07:21 Dose: 4 mg Documented by: Morphine Sulfate (Morphine 2 Mg/Ml Syringe) 2 - 4 mg IV Q2H PRN PRN PRN Reason: Pain Score 6-10 Last Admin: 09/14/20 09:37 Dose: 4 mg Documented by: Ondansetron HCl (Ondansetron 4 Mg/2 Ml Vial) 4 mg IV Q8H PRN PRN PRN Reason: NAUSEA Senna/Docusate Sodium (Senna/Docusate Sodium 1 Tablet) 2 tablet PO BID [facility] Last Admin: 09/14/20 08:47 Dose: 2 tablet Documented by: Sodium Chloride (0.9% Saline Lock 10 Ml Syringe) 10 - 40 ml IV UD PRN PRN Reason: SALINE FLUSH Last Admin: 09/13/20 18:05 Dose: 10 ml Documented by: Zolpidem Tartrate (Zolpidem Tartrate 5 Mg Tablet) 5 mg PO QHS PRN PRN PRN Reason: INSOMNIA Last Admin: 09/11/20 23:53 Dose: 5 mg Documented by: Home Medications: Medications to take at Discharge multivitamin with minerals 1 tab PO DAILY 06/18/20 hydrocodone 10 mg-acetaminophen 325 mg tablet 1 tab PO Q4H PRN #60 tab 09/05/20 Other Amb Orders: 12 Lead EKG [[facility]] Time Frame: 09/05/20, Facility: [facility], Location: Cardiovascular Services Primary Care Physician: Care Physician,No Primary [Primary Care Provider] - Medical Necessity - Tobacco Use Smoking Status: Former smoker Tobacco Use: Chew Meaningful Use Info Meaningful Use Diagnoses (Choose all that apply): None applicable
--- NOTE | 2020-09-14 15:39 | PCM.DC.ORTHO ---
Discharge Diet: Soft diet - Clear liquid the remainder of tonight - progress to soft diet tomorrow Discharge Activity: May Not Drive, May not drive while taking narcotic pain medications. Weight Bearing Status: Weight bearing as tolerated Lifting Restrictions: No lifting over 2 pounds Additional Activity Instructions:: No lifting, bending, or twisting Call your doctor if your incision/area has: Sudden Increased Bleeding, Increased Pain/ Swelling, Increased Redness, Foul Smelling Discharge Call your doctor if you observe: Fever of 101 or Higher, Inability to urinate, Inability to have a bowel movement, Shortness of breath Suture Line Care: Avoid Pulling/Pushing Change Dressing in (Days):: 2 - Thursday Remove Dressing in (days):: 2 Cleanse incision/area with: Do not get Incision Wet, Keep Dressing Clean & Dry Additional Dressing/Incision Instructions:: Patient to keep incision sites clean and dry. Can remove dressings on Thursday and can cleanse then recover with new dressing. No soaking/saturation/submersion Allergies/Adverse Reactions: Allergies No Known Allergies Allergy (Unverified 09/11/20 05:33) Medications to take at Discharge multivitamin with minerals 1 tab PO DAILY 06/18/20 hydrocodone 10 mg-acetaminophen 325 mg tablet 1 tab PO Q4H PRN #60 tab 09/05/20 Orders to be completed after discharge: 12 Lead EKG [[facility]] Time Frame: 09/05/20, Facility: [facility], Location: Cardiovascular Services Primary Care Physician: Care Physician,No Primary [Primary Care Provider] - Test Results: Test results from this visit will be discussed in further detail at your follow-up appointment, if applicable. Please Follow Up With: Miguel Mercer DO When: 10 days
== END 2020-09-14 16:15 | disposition home or self-care (01) | DRG 460 ==
LOC: ACINP 05:12 → MS3 15:07
PROVIDERS: Anesthesiology; Admitting Provider Orthopaedic Surgery; Referring Provider Orthopaedic Surgery; Visit Provider Internal Medicine
PROC: 0SG30A0 Fusion of Lumbosacral Joint with Interbody Fusion Device, Anterior Approach, Anterior Column, Open Approach (ICD-10-PCS; principal; 2020-09-11 07:00)
DX: M51.37 Other intervertebral disc degeneration, lumbosacral region (principal); Z68.42 Body mass index [BMI] 45.0-49.9, adult; K56.7 Ileus, unspecified; M51.27 Other intervertebral disc displacement, lumbosacral region; Z20.828 Contact with and (suspected) exposure to other viral communicable diseases; I10 Essential (primary) hypertension; E66.01 Morbid (severe) obesity due to excess calories; B18.2 Chronic viral hepatitis C; Z86.19 Personal history of other infectious and parasitic diseases; Z79.899 Other long term (current) drug therapy; Z87.891 Personal history of nicotine dependence
CPT/HCPCS: 36415; 72020; 80048; 82962; 83735; 85025; 86703; 86704; 86705; 86706; 86708; 86709; 86803; 87081; 87340; 87426; 88304; 93005; 97110; 97161; 97530; 99251; C1713; C9803; J7120; A4216; G0463; J2405

== ENCOUNTER 2022-02-18 07:23 | Emergency (ER) | payer OTHER, SELFPAY ==
[2022-02-18 07:24] VITALS: BP 149/114; PULSE 128; RESP 18; TEMP 36.1; O2SAT 98; BMI 45.6
--- NOTE | 2022-02-18 07:36 | EDS_ITS ---
HPI History of Present Illness Chief Complaint: Back Informant: patient Onset/Context/Timing Onset: Weeks (1+) Context: Sudden Onset Injury: fall Timing: Continuous Quality: Aching Location: - (lumbosacral) Current Severity: Severe Maximum Severity: Severe Worsened by: improves with Movement Relieved by: Nothing; Not Relieved By Medications (taking Rx prednisone and OTC NSAID) Associated Symptoms Associated Symptoms: Tingling (R thigh and great toe); Negative for Abdominal Pain, Unable to Ambulate, Unable to Transfer, Urinary Retention, Urinary Incontinence, Constipation or Fecal Incontinence Narrative Narrative: Patient had L5-S1 fusion remotely. That a week or little more ago, he was playing [id number] golf and his feet slipped in the grass, he fell to his buttocks with acute onset of pain in the area of his fusion. He followed up with his surgeon Dr. Mercer, he had some x-rays in the office that showed that the construct did not appear to be acutely injured, and he was prescribed a Medrol Dosepak. Patient states this has not helped, he has been adding Aleve to this and it has not been helping at all and now the pain is severe. He states he has some tingling in the left lower extremity down to the great toe, he states this is not anything new and has been present since that surgery, it along with the pain is more pronounced now. Denies any bowel or bladder dysfunction or any other neurologic symptoms that are new. He states he is planning on following up with his surgeon, he just presents for acutely severe pain prior to the office being open now, and also states that he was post go back to work today and feels that he will be unable to if he is going to take prescription medication. He states he does not have any addiction issues. [facility] Medical History (Updated 02/18/22 @ 07:[address] Onesimo Byrne MD) DDD (degenerative disc disease) H/O Clostridium difficile infection HTN (hypertension) Home Medications multivitamin with minerals (Multiple Vitamin-Minerals tablet) 1 tab PO DAILY SUPPLEMENT 06/18/20 [History Last Taken Unknown] losartan 50 mg-hydrochlorothiazide 12.5 mg tablet 1 tab PO DAILY 02/12/22 [History Last Taken Unknown] hydrocodone-acetaminophen 5-325mg 5mg-325mg 1 tab PO Q4H PRN PRN Pain 2 days #10 TABLETS 02/18/22 [Rx Last Taken Unknown] Allergy/AdvReac Type Severity Reaction Status Date / Time No Known Allergies Allergy Verified 02/18/22 07:23 Family History Grandfather Cancer Surgical History (Updated 02/18/22 @ 07:[address] Onesimo Byrne MD) History of repair of ACL S/P lumbar fusion S/P MCL repair Social History household members: friend(s) housing: house current occupational status: employed Smoking Status: Former smoker Tobacco: How many years used: 15 Smokeless tobacco user: chewing tobacco alcohol intake: current alcohol intake frequency: a few times a week Alcohol type: other what type of physical activity do you participate in: weight training do you feel safe at home: Yes ROS ROS ED Constitutional Constitutional ED: Denies chills or fever(s) Gastrointestinal Gastrointestinal: Denies abdominal pain, constipation, fecal incontinence, nausea or vomiting Genitourinary Genitourinary ED: Reports other Details: no urinary retention ; Denies abdominal discomfort or urinary incontinence Musculoskeletal Musculoskeletal: Reports as per HPI and back pain; Denies neck pain Integumentary Denies rash or wounds Neurologic Neurologic: Reports paresthesias; Denies headache(s) or weakness EXAM Physical Exam Const Vital Signs: 02/18/22 07:24 Temperature 96.9 F L Temperature Source Temporal Pulse Rate 128 H Respiratory Rate 18 Blood Pressure 149/114 H Blood Pressure Mean 125 Pulse Ox 98 Oxygen Delivery Method Room Air Positive well nourished and well developed General Appearance ED: well developed and NAD HEENT Negative for trauma or tenderness Eyes PERRL and EOMs intact bilaterally Neck full ROM and supple GI normal to inspection, nondistended, normoactive bowel sounds, soft to palpation and non-tender Back/Spine normal to inspection Back/Spine Narrative: well-healed lumbosacral midline surgical scar General Back: scar(s) Lumbar Spine / Lower Back: ROM limited, lumbar spinal tenderness L5, paraspinal muscle tenderness and straight leg raise negative bilaterally Extremity normal to inspection, full ROM and no pedal edema Neuro oriented x3 and no sensory deficits noted Sensorium / Orientation: alert Motor Exam: strength 5/5 throughout and clonus absent Deep Tendon Reflexes: Rt Patellar (L4): 2+, Lt Patellar (L4): 2+, Rt Ankle (S1): 2+ and Lt Ankle (S1): 2+ Deep Tendon Reflexes Back: Rt Patellar (L4): 2+, Lt Patellar (L4): 2+, Rt Ankle (S1): 2+ and Lt Ankle (S1): 2+ Plantar Reflex: Downgoing: bilateral Psych mental status grossly normal and thought process normal Skin no rashes or lesions noted and no wounds MDM MDM MDM Narrative Medical decision making narrative: [facility] report shows no recent narcotics since this injury. He appears to be in discomfort and is tachycardic as a result, but is otherwise clinically and hemodynamically stable. He is neurologically intact with normal reflexes that are symmetric in the lower extremities. Will prescribe a short course of analgesics, he drove himself so I will give him a prescription and he will drive himself home he is comfortable with that plan and following up. Discharge Plan Triage Chief Complaint: Back Dx/Rx/DC Orders Clinical Impression: Injury of low back Instructions: Causes of Lumbar (Low Back) Pain Prescriptions: New hydrocodone-acetaminophen [hydrocodone-acetaminophen] 5-325 mg tablet 1 tab PO Q4H PRN PRN (Reason: Pain) 2 Days Qty: 10 0RF No Action multivitamin with minerals [Multiple Vitamin-Minerals] Tablet 1 tab PO DAILY losartan-hydrochlorothiazide 50-12.5 mg tablet 1 tab PO DAILY Primary Care Provider: Care Physician,No Primary Referrals: Miguel Mercer DO [Med Staff - Active Staff] - 1-2 Days if not improving Disposition Disposition: Home, Self Care
== END 2022-02-18 08:00 | disposition home or self-care (01) ==
LOC: ED 07:55
PROVIDERS: Emergency Provider Emergency Medicine; Visit Provider Emergency Medicine
DX: S39.92XA Unspecified injury of lower back, initial encounter (principal); I10 Essential (primary) hypertension; W19.XXXA Unspecified fall, initial encounter; Z87.891 Personal history of nicotine dependence; Z79.899 Other long term (current) drug therapy; Z98.1 Arthrodesis status; W01.0XXA Fall on same level from slipping, tripping and stumbling without subsequent striking against object, initial encounter; Y93.53 Activity, golf
CPT/HCPCS: 99281; 99282

== ENCOUNTER → 2022-03-12 | Outpatient (CLI) | payer OTHER, SELFPAY ==
--- NOTE | 2022-03-12 17:50 | MRI_ITS ---
EXAM: MR LUMBAR SPINE WITHOUT AND WITH INTRAVENOUS CONTRAST CLINICAL INDICATION: pain TECHNIQUE: Multiplanar and multisequence MR images of the lumbar spine without and with intravenous contrast. This report was created using [employer] report [employer] technology. CONTRAST: IV 28CC DOTAREM COMPARISON: XR 8.3.22 FINDINGS: VERTEBRAE: See below. SPINAL CORD: Unremarkable. Normal position and signal intensity of the conus medullaris. SOFT TISSUES: Unremarkable. DISCS/SPINAL CANAL/NEURAL FORAMINA: L1-L2: L1-2: There is bilateral facet arthropathy. Loss of intervertebral disc height. There is endplate spondylosis of the vertebral body. Unremarkable central canal. Unremarkable intervertebral neuroforamina. Posterior disc bulge. Discogenic endplate changes. L2-L3: L2-3: Normal endplates. Normal disc height and morphology. Normal central canal and intervertebral neuroforamina. L3-L4: L3-4: Normal endplates. Normal disc height and morphology. Normal central canal and intervertebral neuroforamina. L4-L5: L4-5: There is bilateral facet arthropathy. Loss of intervertebral disc height. There is endplate spondylosis of the vertebral body. Unremarkable central canal. Disc bulge extending into the bilateral intervertebral neuroforamina causing mild compression of the exiting L4 nerve roots. L5-S1: There is bilateral facet arthropathy. Loss of intervertebral disc height. There is endplate spondylosis of the vertebral body. Unremarkable central canal. Disc bulge extending into the bilateral intervertebral neuroforamina causing mild compression of the exiting L5 nerve roots. Anterior internal fixation of the L5 and S1 vertebral body. Intervertebral disc spacers seen in position at this level. Fusion of the spinous processes with Apsen type device. MRI/Spine Lumbar W/WO Contrast IMPRESSION: Degenerative findings at L1-2, L4-5, and L5-S1. Surgical fusion at L5-S1. L4-5 and L5-S1 demonstrate narrowing of the bilateral neural foramina and compression of the exiting respective nerve roots. Electronically Signed: Mahesh Escobar MD at 19:35 EDT ,
== END | disposition home or self-care (01) ==
LOC: MRI 17:34
PROVIDERS: Visit Provider Orthopaedic Surgery
DX: M54.17 Radiculopathy, lumbosacral region (principal); S39.92XA Unspecified injury of lower back, initial encounter; S33.5XXA Sprain of ligaments of lumbar spine, initial encounter
CPT/HCPCS: 72158; A9575